=== PATIENT | male | born 2000 | race Caucasian/White ===

== ENCOUNTER → 2020-09-06 | Outpatient (CLI) | payer SELFPAY | LOC: M LABSMTC 14:10 | PROVIDERS: ATTEND Pediatrics | DX: Z20.828 Contact with and (suspected) exposure to other viral communicable diseases (principal) ==

== ENCOUNTER → 2022-09-30 | Outpatient (REF) | payer OTHER | LOC: M LAB REF 21:18 | PROVIDERS: ATTEND Physician Assistant | DX: R52 Pain, unspecified (principal) ==